=== PATIENT | male | born 1960 | race Caucasian/White ===

== ENCOUNTER 2020-05-15 11:41 | Outpatient (CLI) | payer SELFPAY ==
--- NOTE | 2020-05-15 11:50 | USCV_ITS ---
Zach North Age: 59 Gender: M : 1960 Exam Date: 05/15/2020 12:00 Ordering Phys: GINA MURGUIA Technologist: Cynthia Amin [place] [facility] [place]: LLE [place] HISTORY: Lower extremity swelling. PROCEDURES: Venous duplex imaging was performed in only the left lower extremity. The following venous structures were evaluated: common femoral vein, profunda vein, proximal portion of the greater saphenous vein, superficial femoral vein, and the popliteal vein. In addition, the posterior tibial veins were evaluated. In addition, the posterior tibial and peroneal trunk were evaluated. FINDINGS: + DVT seen from Left CFV, SFV Prox-Dist, Pop V, PTV, Pern, and ATV Pt was directed to go to ER per ordering Doctor's office. CONCLUSIONS DVT left common femoral, femoral, and popliteal veins. Also, DVT in the PTV, peroneal and ATV. Pt was directed to go to ER per ordering Doctor's office. Fernando Brown MD (Electronically Signed) Final Date: 15 May 2020 12:50 S
== END 2020-05-15 11:42 | disposition home or self-care (01) ==
LOC: RAD 11:46
PROVIDERS: Visit Provider Nurse Practitioner Family
DX: L53.9 Erythematous condition, unspecified (principal); R60.0 Localized edema; M79.89 Other specified soft tissue disorders; I82.491 Acute embolism and thrombosis of other specified deep vein of right lower extremity
CPT/HCPCS: 93971

== ENCOUNTER 2020-05-15 12:23 | Emergency (ER) | payer SELFPAY ==
[2020-05-15 12:49] VITALS: BP 143/88; PULSE 101; RESP 14; TEMP 36.7; O2SAT 98; BMI 23.7
[2020-05-15] MEDS: enoxaparin 80 mg/0.8 mL Syringe SUBCUT (15:27)
--- NOTE | 2020-05-15 15:30 | ED_ITS ---
HPI - Extremity Problem General: Chief complaint: Extremity Problem,Nontraumatic Stated complaint: LEG ERYTHEMA Time Seen by Provider: 05/15/20 14:34 Source: patient Mode of arrival: ambulatory Limitations: no limitations History of Present Illness: HPI Narrative: This patient is a 59-year-old male with no prior past medical history who said while at work he hurt his back a few weeks ago on because of this has just been laying around at home since then. He has basically been sitting on laying down only and is not active. About a week ago he noticed some swelling and pain in his left lower extremity which continued to worsen so he went to see a doctor who ordered a Doppler of his left lower extremity and it turned out positive for DVT in his left common femoral, femoral and popliteal veins. He denies any chest pain, difficulty breathing, headache or dizziness. He denies any fever. He has no other complaints. The doctor advised that he come to the ED to be evaluated since he has an acute DVT. MD Complaint: extremity pain and extremity swelling Onset (ago): day(s) (6) Pain Consistency: constant Location: left and lower extremity Quality: aching Radiation: none Relieving factors: nothing Exacerbating factors: nothing Associated symptoms: Reports myalgias; Deny fever(s) or rash Context: immobilization Review of Systems General: Reports: 10 or more systems reviewed and unremarkable except in HPI and below Const: Denies: fever(s), chills or body aches Eyes: Denies: change in vision or blurry vision ENMT: Denies: throat pain, enlarged tonsils, odynophagia, hoarseness, mouth pain or swelling of lips/tongue Card: Denies: palpitations, irregular heart rhythm, edema or swelling of feet/ankles Resp: Denies: dyspnea, productive cough or non-productive cough GI: Denies: abdominal pain, nausea or vomiting : Denies: flank pain, dysuria, urinary frequency, urinary urgency or urinary hesitancy Musc: Reports: extremity swelling; Denies: neck pain, back pain, joint pain, joint swelling, joint redness, joint warmth, joint stiffness, muscle weakness, loss of height or deformity Skin/Breast: Denies: rash, pruritus or erythema Neuro: Denies: headache(s), numbness in extremities or weakness in extremities Endo: Denies: polyuria, polydipsia or tired all the time Physical Exam Const: COMMON NORMALS: no acute distress, average body habitus, patient oriented x3, no limitations, healthy appearing, alert and well nourished HENMT: COMMON NORMALS: normocephalic, atraumatic and moist oral mucous membranes HEAD & SCALP: normocephalic and atraumatic Eye: COMMON NORMALS: Equal, round and reactive pupils present, EOMs intact bilaterally, conjunctivae normal and no scleral icterus CONJUNCTIVA: Yes conjunctivae normal PUPIL: Yes Equal, round and reactive pupils present Neck/C-Spine: COMMON NORMALS: no meningeal signs and no JVD Resp: COMMON NORMALS: normal respiratory effort, No retractions, No use of accessory muscles, clear to auscultation bilaterally and percussion normal AUSCULTATION: clear to auscultation bilaterally PERCUSSION: percussion normal Cardio: COMMON NORMALS: no JVD, regular rate, regular rhythm, S1 normal heart sound present, S2 normal heart sound present, No gallops present (Cardio), No clicks present (Cardio), No murmurs present (Cardio), No rub (Cardio) and Peripheral pulses 2+ throughout RATE: regular rate RHYTHM: regular rhythm HEART SOUNDS: S1 normal heart sound present and S2 normal heart sound present PERIPHERAL PULSES: Peripheral pulses 2+ throughout GI: COMMON NORMALS: Normal to inspection, nondistended, normoactive bowel sounds present, Soft to palpation, non-tender, No hepatosplenomegaly present, no masses and no bruits PALPATION: Yes Soft to palpation and Yes No hepatosp lenomegaly present Extremity: COMMON NORMALS: full ROM, capillary refill normal and no calf tenderness NARRATIVE EXTREMITY EXAM: Left lower extremity significantly enlarged compared to the right, especially because of region. No calf tenderness, negative Homans' sign. Dorsalis pedis intact. Neurovascular status is intact. Neuro: COMMON NORMALS: patient oriented x3 SENSORIUM/ORIENTATION: Yes alert MENINGEAL SIGNS: Yes no meningeal signs Skin: COMMON NORMALS: no rashes or lesions noted, no wounds, turgor normal, no jaundice, no petechiae and no mottling GENERAL SKIN EXAM: no rashes or lesions noted and turgor normal Course Vital Signs: Vital signs: Vital Signs Temperature 98.1 F 05/15/20 12:49 Pulse Rate 88 05/15/20 15:53 Respiratory Rate 14 01/11/21 15:53 Blood Pressure 153/91 05/15/20 15:53 Pulse Oximetry 97 05/15/20 15:53 MDM - Extremity (Nontraumatic) MDM Narrative: Medical decision making narrative: 59-year-old male with no prior medical history presents to the emergency department after he was diagnosed with an acute DVT in his left lower extremity. His DVT is likely secondary to inactivity as he said his back was hurting making him basically just sit and lay all day. No recent travels, no history of malignancy, no prior DVT, no family history of DVTs or sudden . He was given a dose of Lovenox 1 mg/kg and discharged home with a prescription for Eliquis. Because he is uninsured he was given a coupon for 30-day supply of Eliquis. He will be referred to a primary care provider for follow-up. He said he will follow up with an [facility] [place] physician so he can get on the payment plan and discounted medications. He is clinically stable and I think it is safe to discharge him home. I discussed things that he should look out for which may be concerning symptoms for which he needs to return to the emergency department. Medical Records: Attestation: I reviewed the patient's medical records. Lab Data: Attestation: I reviewed the patient's lab results. Imaging Data^: US Vascular: Radiologist's impression: [address] [place] [address] Ultrasound Report Signed Patient: Zach NorthUnit #: [id number] : 1960cct#:[id number] Age/Sex: 59 / MADM Date: 05/15/20 Loc: RADRoom/Bed: Attending Dr: GINA ARAUJO Ordering Provider/Ordering MD: GINA MURGUIA Date of Service: 05/15/20 Procedure(s): [place] [address] Accession Number(s): [id number] Report Number: [id number] Zach North Age: 59 Gender: M : 1960 Exam Date: 05/15/2020 12:00 Ordering Phys: GINA MURGUIA Technologist: Cynthia Broad [place] [facility] [place]: LLE swelling HISTORY: Lower extremity swelling. PROCEDURES: Venous duplex imaging was performed in only the left lower extremity. The following venous structures were evaluated: common femoral vein, profunda vein, proximal portion of the greater saphenous vein, superficial femoral vein, and the popliteal vein. In addition, the posterior tibial veins were evaluated. In addition, the posterior tibial and peroneal trunk were evaluated. FINDINGS: + DVT seen from Left CFV, SFV Prox-Dist, Pop V, PTV, Pern, and ATV Pt was directed to go to ER per ordering Doctor's office. CONCLUSIONS DVT left common femoral, femoral, and popliteal veins. Also, DVT in the PTV, peroneal and ATV. Pt was directed to go to ER per ordering Doctor's office. Fernando Brown MD (Electronically Signed) Final Date: 15 May 2020 12:50 S Discharge Plan Discharge Patient Disposition: Home Clinical Impression: Deep vein thrombosis of lower extremity Qualifiers: Affected thrombotic vein of extremity: femoral Chronicity: acute Laterality: left Qualified Code(s): I82.412 - Acute embolism and thrombosis of left femoral vein Condition: Stable Prescriptions: New Eliquis 5 mg tablet See Rx Instructions .ROUTE .COMPLEX Qty: 70 RF: 0 Discharge Orders: Discharge ED (Routine); Ordered 05/15/20 Ordered By: Bobby Leonard Discharge Diet: Usual diet Discharge Activity: Increase activity as tolerated Patient Instructions: Apixaban (By mouth), Deep Venous Thrombosis (ED) Activity Restrictions/Additional Instructions: Return for any new or worsening symptoms. Follow up with your primary care provider within 3 days. Take the medication as prescribed. 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
[2020-05-15 15:53] VITALS: BP 153/91; PULSE 88; RESP 14; O2SAT 97
== END 2020-05-15 15:54 | disposition home or self-care (01) ==
PROVIDERS: Emergency Provider Family Medicine
DX: I82.412 Acute embolism and thrombosis of left femoral vein (principal)
CPT/HCPCS: 12345; 96372; 99281; 99283; J1650

== ENCOUNTER 2020-08-28 11:14 | Outpatient (CLI) | payer SELFPAY ==
--- NOTE | 2020-08-28 11:23 | USCV_ITS ---
Zach North Age: 59 Gender: M : 1960 Exam Date: 08/28/2020 11:31 Ordering Phys: Aury Haney AUTOMOTIVE ENGINEER-C Technologist: Alma Montenegro [place] [facility] [place]: DVT HISTORY: DVT. PROCEDURES: Comparison:. 05/15/20. Venous duplex imaging was performed in only the left lower extremity. The following venous structures were evaluated: common femoral vein, profunda vein, proximal portion of the greater saphenous vein, superficial femoral vein, and the popliteal vein. In addition, the posterior tibial and peroneal trunk were evaluated. Serial compression, augmentation maneuvers, and spectral Doppler flow evaluation were performed. FINDINGS: Moderate improvement in the DVT burden. There is still DVT still seen withing the SFV, POP, and peroneal veins. Occlusive DVT, especially in the popliteal vein. CONCLUSIONS Persistent but improved DVT left lower extremity venous system. Dr. Celena Mohan DO (Electronically Signed) Final Date: 28 August 2020 13:57 S
== END 2020-08-28 11:15 | disposition home or self-care (01) ==
LOC: RAD 11:16
PROVIDERS: PCP Nurse Practitioner Family; Visit Provider Nurse Practitioner Family
DX: I82.402 Acute embolism and thrombosis of unspecified deep veins of left lower extremity (principal)
CPT/HCPCS: 93971

== ENCOUNTER 2020-11-27 12:24 | Outpatient (CLI) | payer SELFPAY ==
--- NOTE | 2020-11-27 12:45 | USCV_ITS ---
Zach North Age: 59 Gender: M : 1960 Exam Date: 11/27/2020 12:35 Ordering Phys: Aury Haney LOADING DOCK HAND-C Technologist: Charlette Ca Exam Location: [facility] [place] Indication: KNOWN DVT LT LEG. RECHECK ON RESOLUTION HISTORY: DVT Lt leg PROCEDURES: Venous duplex imaging was performed in only the left lower extremity. The following venous structures were evaluated: common femoral vein, profunda vein, proximal portion of the greater saphenous vein, superficial femoral vein, and the popliteal vein. In addition, the posterior tibial and peroneal trunk were evaluated. Serial compression, augmentation maneuvers, and spectral Doppler flow evaluation were performed. FINDINGS: Debris remains Lt. Distal FV thru Lt Pop V. thru Lt Peroneal vein. Not completely compressible but has flow at this time. CONCLUSIONS Residual Non occlusive thrombus Left Femoral vein, popliteal vein and peroneal. Fernando Brown MD (Electronically Signed) Final Date: 27 November 2020 17:43 S
== END 2020-11-27 12:25 | disposition home or self-care (01) ==
LOC: RAD 12:28
PROVIDERS: PCP Nurse Practitioner Family; Visit Provider Nurse Practitioner Family
DX: I82.402 Acute embolism and thrombosis of unspecified deep veins of left lower extremity (principal)
CPT/HCPCS: 93971